=== PATIENT | female | born 1970 | race Caucasian/White ===

== ENCOUNTER → 2018-07-16 | Outpatient (CLI) | payer OTHER ==
[~2018-07-16] MED LIST: AMOCLA875 PO; Antivert25 MG PO; Augmentin 875-1 EACH PO; Cleocin HCl300 MG PO; RXTRAM50 PO; TRAM50 PO
[2018-07-19 02:08] LABS: CHLAMYDIA TRACHOMATIS, NAA Negative (Negative); NEISSERIA GONORRHOEAE, NAA Negative (Negative)
== END | disposition home or self-care (01) ==
LOC: LAB SHORT 15:48 → LAB 15:48
PROVIDERS: Nurse Practitioner Family
DX: Z09 Encounter for follow-up examination after completed treatment for conditions other than malignant neoplasm (principal); Z86.19 Personal history of other infectious and parasitic diseases
CPT/HCPCS: 87491; 87591

== ENCOUNTER 2019-07-25 14:57 | Emergency (ER) | payer OTHER ==
[~2019-07-25] VITALS: Ht 167.6 cm; Wt 70.3 kg
[2019-07-25] MEDS ORDERED: Voltaren100 GM TOP (15:52)
[2019-07-25] MEDS ORDERED: IBUP600 PO (15:52)
== END 2019-07-25 15:55 | disposition home or self-care (01) ==
LOC: ER 14:57
DX: M25.552 Pain in left hip (principal); F17.210 Nicotine dependence, cigarettes, uncomplicated; Z88.2 Allergy status to sulfonamides
CPT/HCPCS: 73502; 99283-25

== ENCOUNTER → 2020-11-16 | Outpatient (CLI) | payer OTHER ==
[~2020-11-16] MED LIST changes: +CLINGEL TOP; +IBUP600 PO; +Voltaren100 GM TOP
[2020-11-16 16:56] LABS: Alanine Aminotransfer (ALT/SGP 30 U/L (12-78); Albumin, Blood 3.7 g/dL (3.4-5.0); Alk Phos 174 U/L (50-136); Anion Gap 4 mmol/L (6-16); Aspartate Aminotrans (AST/SGOT 19 U/L (12-37); Bilirubin, Total 0.3 mg/dL (0.1-1.0); Blood Urea Nitrogen 13 mg/dL (8-24); Bun/Creatinine Ratio 14.6 (12.0-20.0); CO2, Blood 29 mmol/L (21-32); Calcium, Blood 8.8 mg/dL (8.5-10.1); Chloride, Blood 106 mmol/L (98-108); Creatinine, Blood 0.89 mg/dL (0.40-1.00); Globulin, Blood 3.7 g/dL (2.2-4.0); Glomerular Filtration Rate >60 (60-); Glucose, Blood 87 mg/dL (70-99); Potassium, Blood 4.3 mmol/L (3.5-5.5); Sodium, Blood 139 mmol/L (136-145); Total Protein, Blood 7.4 g/dL (6.4-8.2)
[2020-11-16 16:59] LABS: BASOPHILS ABSOLUTE AUTO 0.12 K/mm3 (0.00-0.23); BASOPHILS PERCENT AUTO 1 % (0-2); EOSINOPHILS PERCENT AUTO 3 % (0-6); Hematocrit 42.1 % (33.0-51.0); Hemoglobin 14.1 g/dL (11.5-16.0); IMMATURE GRAN ABSOLUTE AUTO 0.05 K/mm3 (0.00-0.10); IMMATURE GRAN PERCENT AUTO 0 % (0-1); LYMPHOCYTES ABSOLUTE AUTO 2.22 K/mm3 (0.84-5.20); LYMPHOCYTES PERCENT AUTO 18 % (21-46); MONOCYTES ABSOLUTE AUTO 1.07 K/mm3 (0.16-1.47); MONOCYTES PERCENT AUTO 9 % (4-13); Mean Corpuscular HGB 31.2 pg (26.0-34.0); Mean Corpuscular HGB Conc 33.5 g/dL (31.5-36.5); Mean Corpuscular Volume 93 fL (80-100); Mean Platelet Volume 9.7 fL (9.1-12.4); NEUTROPHILS ABSOLUTE AUTO 8.45 K/mm3 (1.96-9.15); NEUTROPHILS PERCENT AUTO 69 % (41-73); Platelet Count 388 K/mm3 (150-400); RDW Coefficient Variation 12.7 % (11.7-14.2); RDW Standard Deviation 43.9 fL (35.1-46.3); Red Blood Cell Count 4.52 M/mm3 (3.80-5.20); White Blood Cell Count 12.21 K/mm3 (4.00-11.30)
== END | disposition home or self-care (01) ==
LOC: LAB SHORT 15:45 → LAB 15:45
PROVIDERS: Internal Medicine Hematology & Oncology
DX: C50.919 Malignant neoplasm of unspecified site of unspecified female breast (principal)
CPT/HCPCS: 80053; 85025

== ENCOUNTER 2020-12-29 05:56 | Day surgery (SDC) | payer OTHER ==
[~2020-12-29] VITALS: Ht 167.6 cm; Wt 79.9 kg
[~2020-12-29 05:56] MED LIST changes: +Prozac40 MG PO
--- NOTE | 2020-12-29 09:11 | NUR ---
Patient up to Ambulate independently. Gait steady. Discharge instructions reviewed with patient. Patient verbalizes understanding. Copy given to patient to take home. Discharged via wheelchair to private car for ride home.
== END 2020-12-29 09:00 | disposition home or self-care (01) ==
LOC: ORSCMMR 05:56 → ORD 07:30 → ORSCMMR 07:30
PROVIDERS: Surgery
PROC: 0JH60WZ Insertion of Totally Implantable Vascular Access Device into Chest Subcutaneous Tissue and Fascia, Open Approach (ICD-10-PCS; principal; 2020-12-29 07:30)
DX: C50.912 Malignant neoplasm of unspecified site of left female breast (principal); F17.210 Nicotine dependence, cigarettes, uncomplicated
CPT/HCPCS: 77001; A9270; C1788; J0690; J1642; J1885; J2250; J3010; J7120

== ENCOUNTER 2021-02-10 11:20 | Day surgery (SDC) | payer OTHER | END 2021-02-10 23:06 | disposition home or self-care (01) | LOC: RAD 11:20 | DX: C50.812 Malignant neoplasm of overlapping sites of left female breast (principal); I97.89 Other postprocedural complications and disorders of the circulatory system, not elsewhere classified | CPT/HCPCS: 36598; Q9967 ==

== ENCOUNTER → 2021-04-18 | Outpatient (CLI) | payer OTHER ==
[~2021-04-18] MED LIST changes: +AMOCLA500 PO; +DEXA4 PO; +OLAN2.5 PO
[2021-04-18 12:32] LABS: BASOPHILS ABSOLUTE AUTO 0.03 K/mm3 (0.00-0.23); BASOPHILS PERCENT AUTO 0 % (0-2); EOSINOPHILS ABSOLUTE AUTO 0.02 K/mm3 (0.00-0.68); EOSINOPHILS PERCENT AUTO 0 % (0-6); Hematocrit 32.4 % (33.0-51.0); Hemoglobin 10.8 g/dL (11.5-16.0); IMMATURE GRAN ABSOLUTE AUTO 0.02 K/mm3 (0.00-0.10); IMMATURE GRAN PERCENT AUTO 0 % (0-1); LYMPHOCYTES ABSOLUTE AUTO 0.65 K/mm3 (0.84-5.20); LYMPHOCYTES PERCENT AUTO 10 % (21-46); MONOCYTES PERCENT AUTO 6 % (4-13); Mean Corpuscular HGB 32.6 pg (26.0-34.0); Mean Corpuscular HGB Conc 33.3 g/dL (31.5-36.5); Mean Corpuscular Volume 98 fL (80-100); Mean Platelet Volume 9.4 fL (9.1-12.4); NEUTROPHILS ABSOLUTE AUTO 5.59 K/mm3 (1.96-9.15); NEUTROPHILS PERCENT AUTO 83 % (41-73); Platelet Count 334 K/mm3 (150-400); RDW Coefficient Variation 17.5 % (11.7-14.2); RDW Standard Deviation 60.9 fL (35.1-46.3); Red Blood Cell Count 3.31 M/mm3 (3.80-5.20); White Blood Cell Count 6.71 K/mm3 (4.00-11.30)
[2021-04-18 12:52] LABS: Alanine Aminotransfer (ALT/SGP 58 U/L (12-78); Albumin, Blood 3.7 g/dL (3.4-5.0); Albumin/Globulin Ratio 1.2 (0.8-1.8); Alk Phos 89 U/L (50-136); Anion Gap 5 mmol/L (6-16); Aspartate Aminotrans (AST/SGOT 32 U/L (12-37); Bilirubin, Total 0.5 mg/dL (0.1-1.0); Blood Urea Nitrogen 14 mg/dL (8-24); Bun/Creatinine Ratio 20.9 (12.0-20.0); CO2, Blood 28 mmol/L (21-32); Calcium, Blood 8.2 mg/dL (8.5-10.1); Chloride, Blood 107 mmol/L (98-108); Creatinine, Blood 0.67 mg/dL (0.40-1.00); Globulin, Blood 3.1 g/dL (2.2-4.0); Glomerular Filtration Rate >60 (60-); Glucose, Blood 131 mg/dL (70-99); Potassium, Blood 3.5 mmol/L (3.5-5.5); Sodium, Blood 140 mmol/L (136-145); Total Protein, Blood 6.8 g/dL (6.4-8.2)
== END ==
LOC: LAB SHORT 12:21 → LAB 12:21
PROVIDERS: Physician Assistant
DX: C50.919 Malignant neoplasm of unspecified site of unspecified female breast (principal); L08.9 Local infection of the skin and subcutaneous tissue, unspecified
CPT/HCPCS: 80053; 85025

== ENCOUNTER 2021-09-23 13:15 | Day surgery (SDC) | payer OTHER ==
[~2021-09-23] VITALS: Ht 167.6 cm; Wt 80.9 kg
--- NOTE | 2021-09-23 14:38 | NUR ---
09/23/21 1438 Ashley Doss ROPIVACAINE 0.2% 10 MLS MIXED W/ 0.05 MLS EPI TO MAKE ROPIVACAINE 0.2% 1:200,000 FOR INJECTION AT OPSITE BY DR. PAINTER. DIYA AREA PREPPED BY RAH PARKER W/ BETADINE SOLUTION. ABDOMINAL AREA PREPPED BY RAH RODRIGUEZ W/ DURAPREP
--- NOTE | 2021-09-23 15:17 | NUR ---
09/23/21 1517 KAMRYN GUIDRY PT SPIT ORAL AIRWAY OUT JUST AFTER ARRIVING IN PACU. PT SNORING AND O2 SAT ON RA DECREASED TO UPPER 80'S. PT PLACED ON 02 VIA FACE TENT @ 10L. TRIAL ON 5L = 100% NOW.
--- NOTE | 2021-09-23 15:36 | NUR ---
09/23/21 1536 KAMRYN GUIDRY STATES ABD "TENDER" BUT NOT PAINFUL
== END 2021-09-23 15:56 | disposition home or self-care (01) ==
LOC: ORSCSDS 13:15
PROVIDERS: Obstetrics & Gynecology
PROC: 0UB74ZZ Excision of Bilateral Fallopian Tubes, Percutaneous Endoscopic Approach (ICD-10-PCS; principal; 2021-09-23 14:45)
PROC: 0UB24ZZ Excision of Bilateral Ovaries, Percutaneous Endoscopic Approach (ICD-10-PCS; principal; 2021-09-23 14:45)
DX: C50.812 Malignant neoplasm of overlapping sites of left female breast (principal); N83.8 Other noninflammatory disorders of ovary, fallopian tube and broad ligament; F41.9 Anxiety disorder, unspecified; F32.A Depression, unspecified; F17.210 Nicotine dependence, cigarettes, uncomplicated
CPT/HCPCS: 88305; J0171; J1100; J1885; J2250; J2405; J2704; J2795; J3010; J7120

== ENCOUNTER 2024-09-09 09:29 | Day surgery (SDC) | payer OTHER ==
[~2024-09-09] VITALS: Ht 167.6 cm; Wt 79.6 kg
[~2024-09-09 09:29] MED LIST changes: +Lidocaine HCl 2% 10 ML SDA ONE
[2024-09-09] MEDS ORDERED: CeFAZolin Sodium 2,000 MG VIAL ONE (09:40)
[2024-09-09] MEDS ORDERED: NS 100 ML IV ONE (09:40)
[2024-09-09] MEDS ORDERED: FentaNYL Citrate 50 MCG/ML 2 ML Injection ONE (10:27)
[2024-09-09] MEDS ORDERED: Midazolam HCl 1MG / ML 2ML Vial ONE (10:27)
[2024-09-09] MEDS ORDERED: Mepivacaine MPF 2% Inj 20 ML Vial ONE (10:39)
[2024-09-09] MEDS ORDERED: Dexamethasone Sod Phos 10 MG/ML 1ML VIAL ONE (10:39)
[2024-09-09] MEDS ORDERED: Bupivacaine 0.5% HCl 5 MG/ML 30MLVIAL ONE (10:39)
[2024-09-09 12:20] VITALS: BP 139/89
== END 2024-09-09 13:12 | disposition home or self-care (01) ==
LOC: ORSCSDS 09:29
PROVIDERS: Orthopaedic Surgery
PROC: 0RRS07Z Replacement of Right Carpometacarpal Joint with Autologous Tissue Substitute, Open Approach (ICD-10-PCS; principal; 2024-09-09 11:45)
DX: M18.11 Unilateral primary osteoarthritis of first carpometacarpal joint, right hand (principal); G25.81 Restless legs syndrome; N18.9 Chronic kidney disease, unspecified; R73.03 Prediabetes; Z85.3 Personal history of malignant neoplasm of breast; F17.210 Nicotine dependence, cigarettes, uncomplicated
CPT/HCPCS: C1713; J0670; J0690; J1100; J2003; J2250; J2704; J3010; J7120